=== PATIENT | female | born 1985 | race Caucasian/White ===

== ENCOUNTER 2018-12-22 05:37 | Inpatient (IN) | payer OTHER, MEDICAID ==
[2018-12-22] MEDS ORDERED: MISOPROSTOL 200 MCG TAB PR ×2 (06:00→16:00)
[2018-12-22] MEDS ORDERED: OXYTOCIN 30 UNITS/LR 500 ML IV ×3 (06:00→16:00)
[2018-12-22] MEDS ORDERED: METHYLERGONOVINE 0.2 MG INJ IM ×2 (06:00→16:00)
[2018-12-22] MEDS ORDERED: CARBOPROST 250 MCG INJ IM ×2 (06:00→16:00)
[2018-12-22] MEDS: LACTATED RINGER'S 1,000 ML IV ×2 (06:09→07:25)
[2018-12-22 06:20] LABS: ADD MAN DIFF? NO
[2018-12-22 06:22] LABS: WHITE BLOOD COUNT 10.4 10^3/ul (4.8-10.8)
[2018-12-22 06:22] LABS: BASOPHIL # 0.1 10^3/ul (0.0-0.1); BASOPHILS % 0.5 % (0.0-2.0); EOSINOPHILS # 0.1 10^3/ul (0.0-0.5); EOSINOPHILS % 0.7 % (0.0-7.0); HEMATOCRIT 36.3 % (37.0-47.0); HEMOGLOBIN 12.3 g/dl (12.0-16.0); LYMPHOCYTES # 3.4 10^3/ul (0.8-2.9); MEAN CORPUSCULAR HEMOGLOBIN 33.3 pg (29.0-33.0); MEAN CORPUSCULAR HGB CONC 33.9 g/dl (32.0-37.0); MEAN CORPUSCULAR VOLUME 98.4 fl (82.0-101.0); MONOCYTE # 0.9 10^3/ul (0.3-0.9); MONOCYTES % 8.9 % (0.0-11.0); NEUTROPHIL # 5.8 10^3/ul (1.6-7.5); NEUTROPHILS % 55.3 % (39.0-77.0); PLATELET COUNT 224 10^3/UL (140-415); RED BLOOD COUNT 3.69 10^6/ul (4.20-5.40); RED CELL DISTRIBUTION WIDTH 12.8 % (11.5-14.5)
[2018-12-22 06:41] LABS: PROTIME 11.2 Sec (11.9-14.9); PT RATIO 0.9
[2018-12-22 06:42] LABS: PARTIAL THROMBOPLASTIN TIME 25.3 Sec (23.0-35.0)
[2018-12-22] MEDS ORDERED: CITRIC ACID/NA CITRATE 30 ML CUP ×2 (07:12→07:13)
[2018-12-22] MEDS: AZITHROMYCIN 500MG/NS (PMX) 250 ML IVPB (07:25)
[2018-12-22] MEDS: CITRIC ACID/NA CITRATE 30 ML CUP PO (08:22)
[2018-12-22] MEDS ORDERED: ONDANSETRON 4 MG INJ (09:36)
[2018-12-22] MEDS ORDERED: METOCLOPRAMIDE 10 MG INJ (09:36)
[2018-12-22] MEDS ORDERED: morphine SULFATE/PF (10 MG/10 ML) INJ (09:36)
[2018-12-22] MEDS ORDERED: KETOROLAC 30 MG INJ (09:36)
[2018-12-22] MEDS: OXYTOCIN 30 UNITS/LR 500 ML IV ×3 (11:34→16:00)
[2018-12-22] MEDS: CEFAZOLIN 2 GM/50 ML (PMX) 50 ML IVPB (12:41)
[2018-12-22] MEDS ORDERED: morphine (1 MG/ML) 10ML SYRINGE IV ×3 (13:00)
[2018-12-22] MEDS ORDERED: DIPHENHYDRAMINE 50 MG INJ IV ×3 (13:00→19:00)
[2018-12-22] MEDS ORDERED: ONDANSETRON 4 MG INJ IV ×3 (13:00→19:00)
[2018-12-22] MEDS: KETOROLAC 30 MG INJ IV ×2 (13:13→23:58)
[2018-12-22] MEDS ORDERED: morphine 2 MG INJ IV ×6 (13:30→19:00)
[2018-12-22] MEDS ORDERED: NALOXONE (0.4 MG/ML) INJ IV ×2 (13:30→19:00)
[2018-12-22] MEDS: DEXTROSE 5%-LR 1,000 ML IV (15:37)
[2018-12-22 15:39] LABS: RAPID PLASMA REAGIN NONREACTIVE (NR)
[2018-12-22] MEDS ORDERED: METHYLERGONOVINE 0.2 MG TAB PO (16:00)
[2018-12-22] MEDS ORDERED: LANOLIN HPA 1 PKT TOP (16:00)
[2018-12-22] MEDS: DIPHTH/TET/ACEL PERTUSS (ADULT) 0.5 ML VIAL IM* (18:15)
[2018-12-22] MEDS: SENNA/DOCUSATE NA (8.6MG/50MG) TAB PO (21:00)
[2018-12-23] MEDS ORDERED: LACTATED RINGER'S 1,000 ML IV
[2018-12-23] MEDS: DEXTROSE 5%-LR 1,000 ML IV (00:11)
[2018-12-23 08:28] LABS: ADD MAN DIFF? NO
[2018-12-23] MEDS: KETOROLAC 30 MG INJ IV (08:35)
[2018-12-23] MEDS: SENNA/DOCUSATE NA (8.6MG/50MG) TAB PO ×2 (08:35→21:45)
[2018-12-23 08:39] LABS: WHITE BLOOD COUNT 12.2 10^3/ul (4.8-10.8)
[2018-12-23 08:39] LABS: BASOPHILS % 0.2 % (0.0-2.0); EOSINOPHILS # 0.1 10^3/ul (0.0-0.5); EOSINOPHILS % 0.6 % (0.0-7.0); HEMATOCRIT 35.7 % (37.0-47.0); LYMPHOCYTES # 2.6 10^3/ul (0.8-2.9); MEAN CORPUSCULAR HEMOGLOBIN 32.7 pg (29.0-33.0); MEAN CORPUSCULAR HGB CONC 33.6 g/dl (32.0-37.0); MEAN CORPUSCULAR VOLUME 97.3 fl (82.0-101.0); MEAN PLATELET VOLUME 10.1 fl (7.4-10.4); MONOCYTE # 0.8 10^3/ul (0.3-0.9); MONOCYTES % 6.3 % (0.0-11.0); NEUTROPHIL # 8.7 10^3/ul (1.6-7.5); PLATELET COUNT 205 10^3/UL (140-415); RED BLOOD COUNT 3.67 10^6/ul (4.20-5.40); RED CELL DISTRIBUTION WIDTH 12.9 % (11.5-14.5)
[2018-12-23] MEDS ORDERED: DIPHTH/TET/ACEL PERTUSS (ADULT) 0.5 ML VIAL IM* (11:00)
[2018-12-23] MEDS ORDERED: HYDROCODONE/APAP (5/325) TAB NGT (11:00)
[2018-12-23] MEDS: HYDROCODONE/APAP (5/325) TAB GTB ×2 (14:30→21:46)
[2018-12-23] MEDS: IBUPROFEN 800 MG TAB PO ×2 (14:30→21:45)
[2018-12-24] MEDS: IBUPROFEN 800 MG TAB PO ×3 (05:30→22:00)
[2018-12-24] MEDS: HYDROCODONE/APAP (5/325) TAB GTB ×3 (05:30→22:00)
[2018-12-24] MEDS: SENNA/DOCUSATE NA (8.6MG/50MG) TAB PO ×2 (09:45→20:41)
[2018-12-24] MEDS: MAGNESIUM HYDROXIDE 30ML CUP PO (10:23)
[2018-12-24] MEDS: NA PHOSPHATE/BIPHOS 133 ML ENEMA PR (16:02)
[2018-12-25] MEDS: HYDROCODONE/APAP (5/325) TAB GTB (05:36)
[2018-12-25] MEDS: IBUPROFEN 800 MG TAB PO ×3 (05:36→21:26)
[2018-12-25] MEDS ORDERED: DIPHTH/TET/ACEL PERTUSS (ADULT) 0.5 ML VIAL IM* (09:00)
[2018-12-25] MEDS: SENNA/DOCUSATE NA (8.6MG/50MG) TAB PO ×2 (09:48→21:26)
[2018-12-25] MEDS: MEASLES,MUMPS,RUBELLA VACCINE INJ SC* (09:49)
[2018-12-25] MEDS ORDERED: HYDROCODONE/APAP (5/325) TAB PO (11:00)
[2018-12-25] MEDS: HYDROCODONE/APAP (5/325) TAB PO ×2 (13:46→21:35)
[2018-12-26] MEDS: HYDROCODONE/APAP (5/325) TAB PO ×2 (05:26→13:20)
[2018-12-26] MEDS: IBUPROFEN 800 MG TAB PO ×2 (05:26→13:19)
[2018-12-26] MEDS: SENNA/DOCUSATE NA (8.6MG/50MG) TAB PO (08:47)
[2018-12-26] MEDS: MAGNESIUM HYDROXIDE 30ML CUP PO (13:23)
== END 2018-12-26 13:35 | disposition home or self-care (01) | DRG 788 ==
LOC: L-D 05:37 → PP1 14:10
PROVIDERS: Obstetrics & Gynecology
PROC: 10D00Z1 Extraction of Products of Conception, Low, Open Approach (ICD-10-PCS; principal; 2018-12-22 07:30)
DX: O65.5 Obstructed labor due to abnormality of maternal pelvic organs (principal); O34.211 Maternal care for low transverse scar from previous cesarean delivery; Z3A.39 39 weeks gestation of pregnancy; Z37.0 Single live birth
CPT/HCPCS: 85025; 85610; 85730; 86592; 86850; 86900; 86901; 93970; 99464